=== PATIENT | male | born 1985 | race Caucasian/White ===

== ENCOUNTER 2016-11-21 08:59 | Observation (INO) ==
--- NOTE | 2016-11-21 09:03 | Emergency Department Note ---
Disposition Clinical Impression: Abscess of skin or subcutaneous tissue Qualifiers: Site of cutaneous abscess: extremity Site of cutaneous abscess of extremity: upper extremity Laterality: left Qualified Code(s): L02.414 - Cutaneous abscess of left upper limb Cellulitis Qualifiers: Site of cellulitis: extremity Site of cellulitis of extremity: upper extremity Laterality: left Qualified Code(s): L03.114 - Cellulitis of left upper limb Disposition: Admitted As Inpatient Condition: Fair Skin/Abscess/FB HPI Chief complaint: ED Wound/Laceration Stated complaint: abcess to left forarm Time Seen by Provider: 11/21/16 09:04 Source: patient Mode of arrival: private vehicle Limitations: no limitations Nursing Notes Reviewed: Yes Vital Signs Reviewed: Yes HPI Narrative: The patient relates he thinks he either sustained an abrasion, puncture or insect bite working in his garage couple days ago. He stopped increased redness and swelling over the left forearm that became more prominent yesterday and also had drained "a lot" of purulent debris. He has had increased pain, swelling and erythema overnight prompting him to come to the emergency Department this a.m. He has had a feeling of fevers and chills with a temperature at home documented at 99.7. He has noted some of the redness has extended up the medial aspect of his upper arm and he has pain only up to the axilla. He denies chest pains, palpitations, diaphoresis, shortness of breath or presyncopal complaints. He denies nausea or vomiting. He denies any other area of redness or swelling. He has had swelling extend to his hand and he has pain across the entire dorsal left forearm with flexion and extension of the fingers or wrist. He also has pain with flexion and extension of the elbow as well as supination or pronation. He reports some generalized malaise and myalgia. Pt Subjective Complaint: abscess/boil Onset (ago): day(s) () Tetanus Up to Date: yes (2008) Location: LUE Severity: moderate, severe Quality: aching, dull, constant Consistency: constant Improves with: none Worsens with: palpation, movement Context: other (States he got a bite or an abrasion to the arm working in his garage.) Associated symptoms: Reports: fever, chills, malaise. Denies: rigors, itching, nausea, vomiting, arthralgias, myalgias, cough, shortness of breath Treatments prior to arrival: attempted to drain pus at home Home Medications Medication Instructions Recorded Confirmed No Known Home Drugs 11/21/16 11/21/16 Allergies Allergy/AdvReac Type Severity Reaction Status Date / Time No Known Allergies Allergy Verified 11/21/16 09:00 All systems ED: reviewed and negative except as stated. Past Medical History - Past Medical History Attestation: Yes The following information was validated with the patient. Source: patient, old records reviewed, nursing notes reviewed Medical history: Reports: no medical history Surgical history: Reports: no surgical history Psychiatric history: Reports: no psych history - Social History Smoking Status: Current every day smoker Alcohol use: Reports: none Drug use: Reports: none Physical Exam - General Limitations: no limitations General appearance: alert, anxious, in distress - Head Head exam: atraumatic, normocephalic, normal inspection - Eye Eye exam: Present: normal appearance, PERRL, EOMI - Neck Neck exam: Present: normal inspection, full ROM, trachea midline - Chest Chest inspection: Present: normal inspection, symmetric chest wall rise - Respiratory Respiratory exam: Present: normal lung sounds bilaterally. Absent: respiratory distress, wheezes, prolonged expiratory phase - Cardiovascular Cardiovascular exam: Present: regular rate, normal rhythm, normal heart sounds. Absent: systolic murmur, rubs - Expanded Upper Extremity Exam Shoulder exam: Present: normal inspection, full ROM. Absent: tenderness, swelling Arm exam: Present: full ROM, erythema (Streaking erythema/lymphangitis to the left axilla. Patient is tender without lymphadenopathy in the left axilla.). Absent: tenderness, swelling Elbow exam: Present: normal inspection, swelling, erythema (Ulnar side of the left elbow extending to the medial upper arm.), pain w/ pronation/supination. Absent: full ROM, tenderness Forearm/Wrist exam: Present: tenderness, swelling, erythema, other (Left forearm has prominent dorsal and radial swelling with erythema and edema extending distally to the fingers. Patient has a subcentimeter erosion where it appears he has already drained an underlying abscess. There is induration but no fluctuance or crepitance about the left forearm.) Hand exam: Present: other (Left hand is swollen, erythematous and tender.) Vascular exam: Normal: capillary refill, radial pulse - Expanded Lower Extremity Exam Neurovascular/Tendon exam: Present: normal capillary refill. Absent: motor deficit, sensory deficit, tendon deficit Gait: observed and normal - Neurological Exam Neurological exam: Present: alert, oriented X3 - Psychiatric Psychiatric exam: Present: normal affect, normal mood, anxious - Skin Skin exam: Present: warm, dry, intact, normal color. Absent: diaphoresis, pallor Course Course Narrative: 0910: Given the patient's prominent cellulitis and draining abscess, IV is established and he is written to receive Dilaudid and Zofran for pain and an initial dose of vancomycin. He thinks his last tetanus shot was 8 years ago and this will be updated as well. Lab work including blood cultures and lactic acid has been ordered not consulted with radiology regarding imaging. They recommended a contrasted CT of the left forearm to best define the anatomy. There is currently no fluctuant point of abscess to indicate clinically a point for any drainage procedure. The patient understands that he will need continuation of IV antibiotics and pain medicine. If there is an area of abscess development or air in the tissue he will need transfer. 1030: After reviewing CT imaging on the CT scanner, I spoken with Dr. Cantu who is agreeable with admission of the patient at this facility for continuation of IV antibiotics. I discussed testing results and recommended disposition with the patient is agreeable for inpatient observation for continuation of antibiotics and pain medications. He understands this may take a day or 2 to reach a point where he will be appropriate for outpatient treatment with oral medications. Vital Signs Temperature 98.4 F 11/21/16 09:00 Pulse Rate 124 11/21/16 09:00 Respiratory Rate 21 11/21/16 09:00 Blood Pressure 143/84 11/21/16 09:00 O2 Sat by Pulse Oximetry 98 11/21/16 09:00 Temperature 98.4 F 11/21/16 09:00 Pulse Rate 99 11/21/16 10:02 Respiratory Rate 18 11/21/16 10:02 Blood Pressure 148/84 11/21/16 10:02 O2 Sat by Pulse Oximetry 99 11/21/16 10:02 Oxygen Delivery Oxygen Delivery Room Air Skin/Abscess/Foreign Body - Differential Diagnosis Likely: abscess of skin or subcutaneous tissue, cellulitis - Medical Records Medical records reviewed: Yes I reviewed the patient's medical records. - Lab Data Lab results reviewed: Yes I reviewed the patient's lab results. Result diagrams: 11/21/16 09:15 11/21/16 09:15 Lab Results 11/21/16 11/21/16 11/21/16 Range/Units 09:15 09:15 09:15 WBC 27.2 H (4.3-11.1) K/mcL RBC 4.64 (4.19-5.50) M/mcL Hgb 13.9 (12.9-16.9) g/dL Hct 39.9 (37.5-50.1) % MCV 86.0 (83.0-100.0) fL MCH 30.0 (28.0-33.3) pg MCHC 34.8 (31.6-35.5) g/dL RDW 13.2 (11.5-14.5) % Plt Count 367 (140-400) K/mcL MPV 9.3 L (9.4-12.4) fL Immature Gran % 0.8 (0-4) % Seg Neutrophils % 83.0 % Lymphocytes % 7.8 % Monocytes % 7.1 % Eosinophils % 1.0 % Basophils % 0.3 % Neutrophils # 22.6 H (1.6-8.9) K/mcL Lymphocytes # 2.1 (0.6-4.6) K/mcL Monocytes # 1.9 H (0.0-1.3) K/mcL Eosinophils # 0.3 (0.0-0.6) K/mcL Basophils # 0.1 (0.0-0.2) K/mcL Platelet Estimate Normal (Normal) PT 14.8 H (9.4-12.1) Seconds INR 1.4 APTT 28.8 (26.0-36.0) Seconds Sodium 135 L (136-145) mEq/L Potassium 3.7 (3.5-4.5) mEq/L Chloride 102 (98-109) mEq/L Carbon Dioxide 21 (19-29) mEq/L BUN 9 (8-26) mg/dL Creatinine 0.72 (0.72-1.25) mg/dL Est GFR ( Amer) > 60 (> 60) Est GFR (Non-Af Amer) > 60 (> 60) BUN/Creatinine Ratio 13 (6-26) Glucose 135 H (70-99) mg/dL Calculated Osmolality 281 (280-300) Lactic Acid (0.5-2.2) mmol/L Calcium 9.6 (8.6-10.8) mg/dL Total Bilirubin 0.7 (0.2-1.2) mg/dL Direct Bilirubin 0.3 (0.0-0.5) mg/dL Indirect Bilirubin 0.4 (0.0-1.2) mg/dL AST 13 (5-34) Units/L ALT 11 (0-55) Units/L Alkaline Phosphatase 104 (38-126) Units/L Serum Total Protein 7.7 (6.0-8.3) g/dL Albumin 3.7 (3.5-5.0) g/dL Globulin 4.0 H (2.4-3.5) g/dL Albumin/Globulin Ratio 0.9 L (1.1-2.2) 11/21/16 Range/Units 09:15 WBC (4.3-11.1) K/mcL RBC (4.19-5.50) M/mcL Hgb (12.9-16.9) g/dL Hct (37.5-50.1) % MCV (83.0-100.0) fL MCH (28.0-33.3) pg MCHC (31.6-35.5) g/dL RDW (11.5-14.5) % Plt Count (140-400) K/mcL MPV (9.4-12.4) fL Immature Gran % (0-4) % Seg Neutrophils % % Lymphocytes % % Monocytes % % Eosinophils % % Basophils % % Neutrophils # (1.6-8.9) K/mcL Lymphocytes # (0.6-4.6) K/mcL Monocytes # (0.0-1.3) K/mcL Eosinophils # (0.0-0.6) K/mcL Basophils # (0.0-0.2) K/mcL Platelet Estimate (Normal) PT (9.4-12.1) Seconds INR APTT (26.0-36.0) Seconds Sodium (136-145) mEq/L Potassium (3.5-4.5) mEq/L Chloride (98-109) mEq/L Carbon Dioxide (19-29) mEq/L BUN (8-26) mg/dL Creatinine (0.72-1.25) mg/dL Est GFR ( Amer) (> 60) Est GFR (Non-Af Amer) (> 60) BUN/Creatinine Ratio (6-26) Glucose (70-99) mg/dL Calculated Osmolality (280-300) Lactic Acid 1.1 (0.5-2.2) mmol/L Calcium (8.6-10.8) mg/dL Total Bilirubin (0.2-1.2) mg/dL Direct Bilirubin (0.0-0.5) mg/dL Indirect Bilirubin (0.0-1.2) mg/dL AST (5-34) Units/L ALT (0-55) Units/L Alkaline Phosphatase (38-126) Units/L Serum Total Protein (6.0-8.3) g/dL Albumin (3.5-5.0) g/dL Globulin (2.4-3.5) g/dL Albumin/Globulin Ratio (1.1-2.2) - Radiology Data Radiology results reviewed: Yes I reviewed the patient's radiology results. CT has been performed of the left forearm with IV contrast. This shows edema without evidence for free air or abscess. There is a underlying bony abnormalities. There is no osteomyelitis. This is on my interpretation. At this time there is no communication in the PACS system with radiology and radiology read will be significantly delayed. Impressions Forearm CT 11/21/16 09:13 IMPRESSION: Elongated focal fluid within the dorsal distal forearm and wrist along radial aspect which appears to be only partially encapsulated by thin enhancing rim but is concerning for developing abscess measuring approximately 7.8 x 1.7 x 0.9 cm. Associated likely cellulitis. There also appears to be some blistering of the dermis to the distal forearm dorsally. No acute bony abnormalities. No CT evidence for osteomyelitis. D/ 11/21/2016 11:08:45 Kenny Lynch MD / Gloria Mcdonough Interpreting Provider: Kenny Lynch MD
[2016-11-21] MEDS ORDERED: Ondansetron 4 MG/2 ML VIAL IVP ONE (09:10)
[2016-11-21] MEDS ORDERED: 0.9 % Sodium Chloride 1,000 ML IVC ONE (09:10)
[2016-11-21] MEDS ORDERED: *HR* HYDROmorphone (PF) 1 MG/ML SYRINGE IVP ONE (09:10)
[2016-11-21] MEDS ORDERED: Vancomycin 1,000 MG in D5% in Water 250 ML IVPB ONE (09:10)
[2016-11-21] MEDS ORDERED: 0.9 % Sodium Chloride 1,000 ML IVC SCH ×2 (09:15→11:25)
[2016-11-21 09:36] LABS: Basophils # 0.1 K/mcL (0.0-0.2); Basophils % 0.3 %; Eosinophils # 0.3 K/mcL (0.0-0.6); Hematocrit 39.9 % (37.5-50.1); Hemoglobin 13.9 g/dL (12.9-16.9); Immature Granulocytes % 0.8 % (0-4); Lymphocytes # 2.1 K/mcL (0.6-4.6); Lymphocytes % 7.8 %; Mean Corpuscular HGB Conc 34.8 g/dL (31.6-35.5); Mean Platelet Volume 9.3 fL (9.4-12.4); Monocytes # 1.9 K/mcL (0.0-1.3); Monocytes % 7.1 %; Neutrophils # 22.6 K/mcL (1.6-8.9); Platelet Count 367 K/mcL (140-400); Red Blood Count 4.64 M/mcL (4.19-5.50); Red Cell Distribution Width 13.2 % (11.5-14.5)
[2016-11-21 09:39] LABS: INR 1.4; Prothrombin Time 14.8 Seconds (9.4-12.1)
[2016-11-21 09:42] LABS: Activated Partial Thrombo Time 28.8 Seconds (26.0-36.0)
[2016-11-21] MEDS ORDERED: Tdap (Boostrix) Vaccine 0.5 ML SYRINGE IM ONE (09:42)
[2016-11-21 09:53] LABS: Alanine Aminotransferase 11 Units/L (0-55); Albumin 3.7 g/dL (3.5-5.0); Albumin/Globulin Ratio 0.9 (1.1-2.2); Alkaline Phosphatase 104 Units/L (38-126); Aspartate Amino Transferase 13 Units/L (5-34); BUN/Creatinine Ratio 13 (6-26); Bilirubin,Direct 0.3 mg/dL (0.0-0.5); Bilirubin,Indirect 0.4 mg/dL (0.0-1.2); Bilirubin,Total 0.7 mg/dL (0.2-1.2); Blood Urea Nitrogen 9 mg/dL (8-26); Calcium 9.6 mg/dL (8.6-10.8); Carbon Dioxide 21 mEq/L (19-29); Chloride 102 mEq/L (98-109); Glucose 135 mg/dL (70-99); Osmolality,Calculated 281 (280-300); Potassium 3.7 mEq/L (3.5-4.5); Sodium 135 mEq/L (136-145); Total Protein 7.7 g/dL (6.0-8.3); eGFR For African Americans > 60 (> 60); eGFR For Non-African Americans > 60 (> 60)
[2016-11-21 10:14] LABS: Platelet Estimate Normal (Normal)
[2016-11-21] MEDS ORDERED: Aminoglycoside Consult 1 EACH MC ONE (10:39)
[2016-11-21] MEDS ORDERED: *HR* HYDROmorphone (PF) 1 MG/ML SYRINGE IVP PRN ×2 (11:25→12:15)
[2016-11-21] MEDS ORDERED: *HR* OxyCODONE Immed Rel 5 MG TABLET PO PRN (11:25)
[2016-11-21] MEDS ORDERED: Ketorolac 30 MG/ML VIAL IVP PRN (11:25)
[2016-11-21] MEDS ORDERED: MOM Conc 10 ML UD.LIQ PO PRN (11:25)
[2016-11-21] MEDS ORDERED: Naloxone 0.4 MG/ML INJ IVP PRN (11:25)
[2016-11-21] MEDS ORDERED: Ondansetron 4 MG/2 ML VIAL IVP PRN (11:25)
[2016-11-21 11:51] VITALS: BP 152/79
[2016-11-21] MEDS ORDERED: *HR* HYDROmorphone 2 MG/ML SYRINGE IVP PRN (11:54)
[2016-11-21] MEDS ORDERED: *HR* HYDROcodone/Acet 5/325 mg TABLET PO SCH (12:00)
--- NOTE | 2016-11-21 14:50 | Internal Med History&Physical ---
Date of Encounter: 11/21/16 Time of Encounter: 14:20 Assessment and Plan (1) Abscess of skin or subcutaneous tissue Current visit: Yes Status: Acute He has been started on IV vancomycin. I have spoken with the surgeon component engineer at [facility] and the patient will be transferred for drainage of the forearm abscess. Qualifiers: Site of cutaneous abscess: extremity Site of cutaneous abscess of extremity : upper extremity Laterality: left Qualified Code(s): L02.414 - Cutaneous abscess of left upper limb Internal Medicine - H&P: HPI Chief complaint: Left arm infection Admitted From: Home Plans for Post Hospital Care: Transfer Other History of present illness: Mr. Traylor is a 31 year old male who came to emergency room stating he felt something bit him 2 days earlier working in the garage. He did not see the insect or other source of the bite. The following day he noticed some increased erythema and pain in his left forearm. It worsened over the next 24 hours and he came to [facility] emergency room the morning of November 21. He was found to have significant erythema and pain with lymphangitic streaking. A CT was done but the PACS system was not operational at the time and the patient was admitted to [facility] floor on IV vancomycin. The CT scan report has now arrived and shows a 7.8 x 1.7 x 0.9 cm abscess with associated cellulitis. Past Med Surg Social Fam HX - Past Medical History Medical history: no medical history Psychiatric history: no psych history - Past Surgical History Surgical History: no surgical history - Social History Smoking Status: Current every day smoker Smokeless Tobacco Status: No Alcohol use: none Drug use: none Internal Medicine - H&P: Meds No Known Home Drugs 11/21/16 [History] 3 Allergy/AdvReac Type Severity Reaction Status Date / Time No Known Allergies Allergy Verified 11/21/16 09:00 All Systems PM: A 10-system review of systems was performed and is negative for pertinent findings except as documented above in the HPI. Review of systems: Gen.: He states his weight has been stable past few months Cardiovascular: He denies hypertension NC heart failure angina DVT or pulmonary embolus Respiratory: He has smoked since age 17 up to 2 per day. He denies chronic lung disease GI: He denies disorders of his liver gallbladder or exocrine pancreas : He denies hematuria dysuria or kidney stones Neurologic: He denies large distribution strokes or seizures Endocrine: He denies diabetes or thyroid disease or hyperlipidemia Hematology/oncology: Denies blood disorders cancers or anemia Psychiatric: He denies anxiety depression or other mental health issues Musk skeletal: He denies arthritis gout or other bone joint or muscle disorders. - Constitutional Vitals: Temp Pulse Resp BP Pulse Ox 98.7 F 107 16 152/79 100 11/21/16 11:51 11/21/16 11:51 11/21/16 11:51 11/21/16 11:51 11/21/16 11:51 Exam: Gen.: He is a well-developed well-nourished male who appears in mild to moderate pain HEENT: Head is atraumatic and normocephalic. Eyes: EOMI. There is no scleral icterus. Mouth: Mucosa is moist. Neck: Supple and nontender. There is no thyromegaly or adenopathy noted. Heart: Regular without murmurs gallops or ectopics Lungs: No wheezes or crackles heard. Abdomen: Soft and nontender. There is no thyromegaly or adenopathy noted. Heart: Regular without murmurs gallops or ectopics Lungs: No wheezes or crackles are heard. Abdomen: Soft and nontender. No masses or guarding are noted. Extremities: There is no cyanosis edema or clubbing noted. Dorsalis pedis and posterior tibial pulses are trace to 1+ palpable bilaterally. The left arm shows significant erythema involving the entire forearm and hand with edema. There is lymphangitic streaking on the inner forearm extending to the axillary area. There is an area of induration measuring approximately 8 cm x 4 cm with 2 areas of visible purulence on the extensor forearm distally. Neurologic: Mental status: He is talkative and a good historian. Cranial nerves : Smile is symmetric. Forehead wrinkles bilaterally. Tongue protrudes midline. EOMI. Motor: There is no pronator drift. Cerebellar: Finger to nose is intact bilaterally. Skin: Warm and dry with left arm changes as per above. Internal Med - H&P Results - Labs CBC & Chem 7: 11/21/16 09:15 11/21/16 09:15
--- NOTE | 2016-11-21 14:58 | Discharge Summary ---
Date of Encounter: 11/21/16 Time of Encounter: 14:20 - Discharge Diagnosis (1) Abscess of skin or subcutaneous tissue Priority: Primary Status: Acute Qualifiers: Site of cutaneous abscess: extremity Site of cutaneous abscess of extremity : upper extremity Laterality: left Qualified Code(s): L02.414 - Cutaneous abscess of left upper limb - Discharge Medications Home Medications: No Known Home Drugs 11/21/16 [History] Allergies/Adverse Reactions: 3 Allergy/AdvReac Type Severity Reaction Status Date / Time No Known Allergies Allergy Verified 11/21/16 09:00 Date of admission: 11/21/16 10:59 Primary care physician: PCP NONE - Patient Status Disposition: Transfer Other Condition: Fair - Discharge Instructions Hospital course: Mr. Traylor is a 31 year old male who came to emergency room stating he felt something bit him 2 days earlier working in the garage. He did not see the insect or other source of the bite. The following day he noticed some increased erythema and pain in his left forearm. It worsened over the next 24 hours and he came to [facility] emergency room the morning of November 21. He was found to have significant erythema and pain with lymphangitic streaking. A CT was done but the PACS system was not operational at the time and the patient was admitted to [facility] floor on IV vancomycin. The CT scan report has now arrived and shows a 7.8 x 1.7 x 0.9 cm abscess with associated cellulitis. Initial orders were written by the emergency room physician. I saw him the afternoon of November 21. I spoke with the general surgeon food operations manager at [facility] and he wished the patient to be transferred to emergency room at [facility] for further urgent intervention. - Time Spent with Patient Total time spent providing and/or coordinating discharge services: - Constitutional Vitals: Temp Pulse Resp BP Pulse Ox 98.7 F 107 16 152/79 100 11/21/16 11:51 11/21/16 11:51 11/21/16 11:51 11/21/16 11:51 11/21/16 11:51
[2016-11-21] MEDS ORDERED: Ringers Solution, Lactated 1,000 ML IVC SCH (15:00)
[2016-11-21] MEDS ORDERED: Vancomycin 1,000 MG in D5% in Water 250 ML IVPB SCH ×2 (18:00→22:00)
== END 2016-11-21 16:03 | disposition other institution (70) ==
LOC: EMEROOPIK 08:59 → INPPIK 08:59
PROVIDERS: ADMIT Internal Medicine; ATTEND Internal Medicine

== ENCOUNTER 2018-07-20 02:57 | Inpatient (IN) ==
[2018-07-20] MEDS ORDERED: Isovue-370 500 ML BOTTLE IVP ONE (03:24)
[2018-07-20] MEDS ORDERED: Ketorolac 30 MG/ML VIAL IVP ONE (03:25)
--- NOTE | 2018-07-20 03:31 | Emergency Department Note ---
Disposition Clinical Impression: Cellulitis Qualifiers: Site of cellulitis: extremity Site of cellulitis of extremity: upper extremity Laterality: right Qualified Code(s): L03.113 - Cellulitis of right upper limb Disposition: Admitted As Inpatient Condition: Fair Referrals: NONE,PCP [Primary Care Provider] - Forms: ED Satisfaction Letter Time of Disposition: 05:06 Extremity Problem HPI - General Chief complaint: ED Extremity Problem,Nontraumatic Stated complaint: SWELLING TO RIGHT ARM Time Seen by Provider: 07/20/18 03:07 Source: patient Mode of arrival: private vehicle Limitations: no limitations Nursing Notes Reviewed: Yes Vital Signs Reviewed: Yes - History of Present Illness HPI Narrative: Patient presents to the ED with redness, pain and swelling to his right arm that started yesterday. He has an open sore just below the elbow that he states first appeared 2 days ago. He is unsure what caused the initial sore. He denies any specific injury that he can recall. He states he picked the scab off yesterday and there was some spontaneous drainage. Following that he develops progressively worsening redness and swelling up and down the entire right arm. He rates his pain 8 out of 10. He reports fever of 100.9 at home just prior to coming to the ED as well as chills. He took 400 mg of ibuprofen 12 hours ago. He is also complaining of a headache. He has a history of multiple prior abscesses and has been hospitalized for a severe abscess with MRSA in the past requiring surgical drainage in his left arm. He states he has had other abscesses as well that he opened and drained at home. No other hospitalizations for abscesses. He denies any chronic medical problems. He does not take any routine medications. He smokes a pack per day. He occasionally drinks alcohol and smokes marijuana. He admits to a history of IV drug abuse over 10 years ago but denies any current use. Pain Scale: 8 - Related Data Previous Rx's Medication Instructions Recorded Oxycodone HCl/Acetaminophen 1 each PO BID #10 tablet 11/25/16 [Percocet 5-325 mg Tablet] Sulfamethoxazole/Trimeth DS 1 each PO BID #14 tablet 11/25/16 [Bactrim DS] Allergies Allergy/AdvReac Type Severity Reaction Status Date / Time No Known Allergies Allergy Verified 11/21/16 09:00 Constitutional: Reports: fever, chills. Denies: weakness, weight change Cardiovascular: Denies: chest pain, palpitations, dyspnea on exertion, edema, syncope Respiratory: Reports: cough. Denies: dyspnea, wheezes, hemoptysis, stridor Gastrointestinal: Denies: abdominal pain, nausea, vomiting, diarrhea, constipation, hematemesis, melena, hematochezia Musculoskeletal: Reports: arthralgia (R arm) Integumentary: Reports: as per HPI (redness, swelling, warmth R arm). Denies: rash, abrasion, lesions Neurological: Denies: headache, weakness, numbness, paresthesias, confusion, abnormal gait, vertigo Psychiatric: Denies: anxiety, depression, suicidal thoughts, homicidal thoughts, auditory hallucinations, visual hallucinations Endocrine: Denies: fatigue Hematological/Lymphatic: Denies: easy bleeding, easy bruising Allergic/Immunologic: Denies: facial swelling, urticaria Past Medical History - Past Medical History Medical history: Reports: no medical history Surgical history: Reports: no surgical history Psychiatric history: Reports: no psych history - Social History Smoking Status: Current every day smoker Smokeless Tobacco Status: No Alcohol use: Reports: none Drug use: Reports: none Physical Exam - General Limitations: no limitations General appearance: alert, in no apparent distress - Head Head exam: atraumatic, normocephalic, normal inspection - Eye Eye exam: Present: normal appearance, PERRL, EOMI - Chest Chest inspection: Present: normal inspection, symmetric chest wall rise - Respiratory Respiratory exam: Present: normal lung sounds bilaterally - Cardiovascular Cardiovascular exam: Present: regular rate, normal rhythm, normal heart sounds - Expanded Upper Extremity Exam Arm exam: Present: swelling (Overnight), erythema (On right, streaking up to axilla) Elbow exam: Present: full ROM (but pain with movement), swelling (On right) Forearm/Wrist exam: Present: full ROM (but pain in forearm with movement), tenderness (Throughout the forearm on right), swelling (Of entire right arm starting at wrist and extending up to the upper arm), erythema (Entire forearm on right), other (11 cm scabbed sore on the back of right arm below elbow) Hand exam: Present: normal inspection, full ROM Neuromotor exam: Normal: wrist extension, thumb opposition, thumb IP flexion, thumb adduction, fingers 2-5 abduction Neurosensory exam: Normal: radial nerve Vascular exam: Normal: capillary refill, radial pulse - Neurological Exam Neurological exam: Present: alert, oriented X3 - Psychiatric Psychiatric exam: Present: normal affect, normal mood - Skin Skin exam: Present: warm, dry, intact, normal color Course Course Narrative: Patient presents to the ED with pain, redness and swelling of his entire right arm that developed after he picked the scab off a sore just below his right elbow. The entire arm is red, hot, swollen and tense with no focal area of fluctuance palpable with streaking redness up into the axilla concerning for extensive cellulitis as well as the possibility of a deep abscess. He is tachycardic and has a low-grade fever of 100.7. Given his history of MRSA will start IV vancomycin after blood cultures are drawn. Will obtain CT scan for further evaluation of any possible abscess. - Reevaluation(s) Reevaluation #1: Lab work shows a leukocytosis of 22,000 with neutrophils of 18,000. Lactic acid is not elevated. Awaiting CT results. Time: 04:33 Reevaluation #2: CT scan shows skin thickening and soft tissue swelling but no focal fluid collection or gas. Discussed with patient the need for admission and continued IV antibiotics but without the need for anticipated surgical intervention and he is in agreement. I spoken to the hospitalist on-call, Dr. Cantu, who has agreed to accept the patient. Time: 05:04 Vital Signs Temperature 100.7 F H 07/20/18 02:58 Pulse Rate 128 07/20/18 02:58 Respiratory Rate 20 07/20/18 02:58 Blood Pressure 123/72 07/20/18 02:58 O2 Sat by Pulse Oximetry 97 07/20/18 02:58 Temperature 98.8 F 07/20/18 04:56 Pulse Rate 128 07/20/18 02:58 Respiratory Rate 20 07/20/18 02:58 Blood Pressure 123/72 07/20/18 02:58 O2 Sat by Pulse Oximetry 97 07/20/18 02:58 Oxygen Delivery Oxygen Delivery Room Air Extremity Problem, Nontraumati - Differential Diagnosis Likely: cellulitis, other (abscess) - Medical Records Medical records reviewed: Yes I reviewed the patient's medical records. - Lab Data Lab results reviewed: Yes I reviewed the patient's lab results. Result diagrams: 07/20/18 04:05 07/20/18 03:35 Lab Results 07/20/18 07/20/18 07/20/18 Range/Units 03:35 04:05 04:05 WBC 22.5 H (4.3-11.1) K/mcL RBC 4.20 (4.19-5.50) M/mcL Hgb 12.7 L (12.9-16.9) g/dL Hct 36.2 L (37.5-50.1) % MCV 86.2 (83.0-100.0) fL MCH 30.2 (28.0-33.3) pg MCHC 35.1 (31.6-35.5) g/dL RDW 12.7 (11.5-14.5) % Plt Count 301 (140-400) K/mcL MPV 9.8 (9.4-12.4) fL Immature Gran % 0.5 (0-4) % Seg Neutrophils % 82.2 % Lymphocytes % 8.4 % Monocytes % 7.8 % Eosinophils % 0.7 % Basophils % 0.4 % Neutrophils # 18.5 H (1.6-8.9) K/mcL Lymphocytes # 1.9 (0.6-4.6) K/mcL Monocytes # 1.8 H (0.0-1.3) K/mcL Eosinophils # 0.2 (0.0-0.6) K/mcL Basophils # 0.1 (0.0-0.2) K/mcL Sodium 133 L (136-145) mEq/L Potassium 3.3 L (3.5-5.1) mEq/L Chloride 99 (98-107) mEq/L Carbon Dioxide 26 (23-29) mEq/L BUN 11 (6-20) mg/dL Creatinine 0.67 L (0.70-1.30) mg/dL Est GFR ( Amer) > 60 (> 60) Est GFR (Non-Af Amer) > 60 (> 60) BUN/Creatinine Ratio 16 (6-26) Glucose 133 H (70-105) mg/dL Calculated Osmolality 277 L (280-300) Lactic Acid 0.4 L (0.5-2.2) mmol/L Calcium 8.9 (8.6-10.3) mg/dL - Radiology Data Radiology results reviewed: Yes I reviewed the patient's radiology results. ITS Impressions Forearm CT 07/20/18 03:24 IMPRESSION: Skin thickening and diffuse soft tissue edema. No fluid collection or soft tissue gas. D/ / Rosaura Balderas MD / Rosaura Balderas MD Interpreting Provider: Rosaura Balderas MD
[2018-07-20] MEDS ORDERED: Acetaminophen 325 MG TABLET PO ONE (03:48)
[2018-07-20 04:10] LABS: BUN/Creatinine Ratio 16 (6-26); Blood Urea Nitrogen 11 mg/dL (6-20); Calcium 8.9 mg/dL (8.6-10.3); Carbon Dioxide 26 mEq/L (23-29); Chloride 99 mEq/L (98-107); Glucose 133 mg/dL (70-105); Osmolality,Calculated 277 (280-300); Potassium 3.3 mEq/L (3.5-5.1); Sodium 133 mEq/L (136-145); eGFR For African Americans > 60 (> 60); eGFR For Non-African Americans > 60 (> 60)
[2018-07-20 04:13] LABS: Basophils # 0.1 K/mcL (0.0-0.2); Basophils % 0.4 %; Eosinophils # 0.2 K/mcL (0.0-0.6); Eosinophils % 0.7 %; Hematocrit 36.2 % (37.5-50.1); Hemoglobin 12.7 g/dL (12.9-16.9); Immature Granulocytes % 0.5 % (0-4); Lymphocytes # 1.9 K/mcL (0.6-4.6); Lymphocytes % 8.4 %; Mean Corpuscular HGB Conc 35.1 g/dL (31.6-35.5); Mean Corpuscular Hemoglobin 30.2 pg (28.0-33.3); Mean Corpuscular Volume 86.2 fL (83.0-100.0); Mean Platelet Volume 9.8 fL (9.4-12.4); Monocytes # 1.8 K/mcL (0.0-1.3); Monocytes % 7.8 %; Neutrophils # 18.5 K/mcL (1.6-8.9); Platelet Count 301 K/mcL (140-400); Red Cell Distribution Width 12.7 % (11.5-14.5); Segmented Neutrophils % 82.2 %; White Blood Count 22.5 K/mcL (4.3-11.1)
[2018-07-20] MEDS ORDERED: traMADol 50 MG TABLET PO PRN (05:07)
[2018-07-20] MEDS ORDERED: Naloxone 0.4 MG/ML INJ IVP PRN ×2 (05:07→05:17)
[2018-07-20] MEDS ORDERED: Acetaminophen 325 MG TABLET PO PRN ×2 (05:07→05:17)
[2018-07-20] MEDS ORDERED: *HR* OxyCODONE Immed Rel 5 MG TABLET PO PRN (05:07)
[2018-07-20] MEDS: traMADol 50 MG TABLET PO PRN (13:05)
--- NOTE | 2018-07-20 15:01 | Internal Med History&Physical ---
Date of Encounter: 07/20/18 Time of Encounter: 14:30 Assessment and Plan (1) Cellulitis Current visit: Yes Status: Acute He has been started on IV vancomycin. Lactobacillus will be added. Qualifiers: Site of cellulitis: extremity Site of cellulitis of extremity: upper extremity Laterality: right Qualified Code(s): L03.113 - Cellulitis of right upper limb (2) Hypokalemia Current visit: Yes Status: Acute He reports 2 episodes of vomiting in the 24 hours preceding hospitalization. Supplemental potassium with IV fluids will be given and follow-up labs monitored. (3) Anemia Current visit: Yes Status: Acute Anemia testing will be done in a.m. Qualifiers: Anemia type: unspecified type Qualified Code(s): D64.9 - Anemia, unspecified Internal Medicine - H&P: HPI Chief complaint: Right arm infection Admitted From: Emergency Dept Plans for Post Hospital Care: Home History of present illness: Mr. Traylor is a 32 year old male who came to emergency room stating he had right arm infection onset 07/17/2018. He reports he first noticed a "little spot" on his arm that was pruritic. He admits he likely scratched it. Over the next 2 days the spot develop expanding erythema and pain. He felt fevers and chills the evening of July 19 so came to emergency room. He was evaluated and was found to have significant cellulitis and was admitted to [facility] floor for ongoing care needs. He denies knowledge of specific injury such as bite, laceration, or other trauma. He had an abscess of the left forearm October 2016 requiring surgical debridement at [facility]. He reports he has had 4-5 "sores" annually on his skin, primarily arms, for several years. He denies other family members similarly affected. Past Med Surg Social Fam HX - Past Medical History Medical history: no medical history Psychiatric history: no psych history - Past Surgical History Surgical History: orthopedic, other Additional surgical history: LEFT WRIST - Social History Smoking Status: Current every day smoker Packs per day: 1 Smokeless Tobacco Status: No Alcohol use: none Drug use: none - Family History Mother History Unknown: Yes Internal Medicine - H&P: Meds Allergy/AdvReac Type Severity Reaction Status Date / Time No Known Allergies Allergy Verified 11/21/16 09:00 All Systems PM: A 10-system review of systems was performed and is negative for pertinent findings except as documented above in the HPI. Review of systems: Review of systems from his October [address] [facility] hospitalization were reviewed and revised as below. Gen.: His weight has been stable at approximately 65 kg since October 2016 hospitalization. Cardiovascular: He denies hypertension MA heart failure angina DVT or pulmonary embolus Respiratory: He has smoked since age 17 up to 2 packs per day. He denies chronic lung disease GI: He denies disorders of his liver gallbladder or exocrine pancreas : He denies hematuria dysuria or kidney stones Neurologic: He denies large distribution strokes or seizures Endocrine: He denies diabetes or thyroid disease or hyperlipidemia Hematology/oncology: Denies blood disorders or personal cancer. Reports family history of cancer. He was unaware he had anemia on labs since 11/21/2016. Psychiatric: He denies anxiety depression or other mental health issues Musk skeletal: He denies arthritis gout or other bone joint or muscle disorders. He had left forearm abscess requiring debridement October 2016 as per history of present illness. - Constitutional Vitals: Temp Pulse Resp BP Pulse Ox 97.8 F 81 16 98/63 98 07/20/18 10:31 07/20/18 10:31 07/20/18 10:31 07/20/18 10:31 07/20/18 10:31 Exam: Gen.: He is a well-developed well-nourished male who appears in mild to moderate discomfort from left arm pain HEENT: Head is atraumatic and normocephalic. Eyes: EOMI. There is no scleral icterus. Mouth: Mucosa is moist. Neck: Supple and nontender. There is no thyromegaly or adenopathy noted. Heart: Regular without murmurs gallops or ectopics Lungs: No wheezes or crackles are heard. Abdomen: Soft and nontender. No masses or guarding are noted. Extremities: The right arm shows erythema from the distal upper arm to the hand. There is a shallow eschar approximately 15 mm diameter near the right elbow on the flexor surface of the forearm. There is induration of the surrounding tissues extending several centimeters on the flexor surface distally of the right forearm. There is an erythematous streak noted on the right upper arm extending to the shoulder. Adenopathy is not palpated in the axilla but he does complain of tenderness on palpation. The left arm is unremarkable. There is no edema of the legs. Dorsalis pedis and posterior tibial pulses are 2 over 2 bilaterally. Neurologic: Mental status: He is talkative and a good historian. Cranial nerves: Smile is symmetric. Forehead wrinkles bilaterally. Tongue protrudes midline. EOMI. Motor: Grossly intact without further formal testing done Skin: He has changes of right arm cellulitis as per above. Otherwise skin is warm and dry. Internal Med - H&P Results - Labs CBC & Chem 7: 07/20/18 04:05 07/20/18 03:35 Labs: Short CBC 07/20/18 Range/Units 04:05 WBC 22.5 H (4.3-11.1) K/mcL Hgb 12.7 L (12.9-16.9) g/dL Hct 36.2 L (37.5-50.1) % Plt Count 301 (140-400) K/mcL Neutrophils # 18.5 H (1.6-8.9) K/mcL BMP 07/20/18 03:35 Sodium 133 L Potassium 3.3 L Chloride 99 Carbon Dioxide 26 BUN 11 Creatinine 0.67 L Glucose 133 H Calcium 8.9 - Impressions ITS Impressions Forearm CT 07/20/18 03:24 IMPRESSION: Skin thickening and diffuse soft tissue edema. No fluid collection or soft tissue gas. D/ / Rosaura Balderas MD / Rosaura Balderas MD Interpreting Provider: Rosaura Balderas MD - VTE Reasons for not Prescribing Prophylaxis: Treatment not Indicated - Low risk for VTE
[2018-07-20] MEDS: *HR* OxyCODONE Immed Rel 5 MG TABLET PO PRN ×2 (15:37→22:21)
[2018-07-20] MEDS: 0.45 % Sodium Chloride w/KCl 20 MEQ/1,000 ML MLS IVC SCH (16:58)
[2018-07-20] MEDS: Lactobacillus 1 EACH CAP.SPRINK PO SCH (20:29)
[2018-07-21] MEDS: 0.45 % Sodium Chloride w/KCl 20 MEQ/1,000 ML MLS IVC SCH ×2 (04:08→21:05)
[2018-07-21] MEDS: *HR* OxyCODONE Immed Rel 5 MG TABLET PO PRN ×3 (04:12→20:17)
[2018-07-21] MEDS: *HR* Enoxaparin 40 MG/0.4 ML SYRINGE SQ SCH (05:13)
[2018-07-21 05:36] LABS: Basophils # 0.1 K/mcL (0.0-0.2); Basophils % 0.4 %; Eosinophils # 0.8 K/mcL (0.0-0.6); Eosinophils % 5.1 %; Hematocrit 33.1 % (37.5-50.1); Hemoglobin 11.3 g/dL (12.9-16.9); Immature Granulocytes % 0.6 % (0-4); Lymphocytes # 2.1 K/mcL (0.6-4.6); Lymphocytes % 12.9 %; Mean Corpuscular HGB Conc 34.1 g/dL (31.6-35.5); Mean Corpuscular Hemoglobin 30.2 pg (28.0-33.3); Mean Corpuscular Volume 88.5 fL (83.0-100.0); Mean Platelet Volume 10.3 fL (9.4-12.4); Monocytes # 1.4 K/mcL (0.0-1.3); Monocytes % 8.6 %; Neutrophils # 11.8 K/mcL (1.6-8.9); Platelet Count 280 K/mcL (140-400); Red Blood Count 3.74 M/mcL (4.19-5.50); Segmented Neutrophils % 72.4 %; White Blood Count 16.3 K/mcL (4.3-11.1)
[2018-07-21 06:02] LABS: BUN/Creatinine Ratio 17 (6-26); Blood Urea Nitrogen 11 mg/dL (6-20); Calcium 8.1 mg/dL (8.6-10.3); Carbon Dioxide 27 mEq/L (23-29); Chloride 102 mEq/L (98-107); Glucose 126 mg/dL (70-105); Osmolality,Calculated 281 (280-300); Potassium 3.3 mEq/L (3.5-5.1); Sodium 135 mEq/L (136-145); eGFR For African Americans > 60 (> 60); eGFR For Non-African Americans > 60 (> 60)
[2018-07-21 08:09] LABS: Acinetobacter baumannii by PCR Not Detected (Not Detect); Enterobacter cloacae Cmplx PCR Not Detected (Not Detect); Enterobacteriaceae by PCR Not Detected (Not Detect); Enterococcus by PCR Not Detected (Not Detect); Escherichia coli by PCR Not Detected (Not Detect); Klebsiella oxytoca by PCR Not Detected (Not Detect); Klebsiella pneumoniae by PCR Not Detected (Not Detect); Proteus by PCR Not Detected (Not Detect); Serratia marcescens by PCR Not Detected (Not Detect); Staphylococcus aureus by PCR DETECTED (Not Detect); Staphylococcus by PCR DETECTED (Not Detect); Streptococcus agalactiae(B)PCR Not Detected (Not Detect); Streptococcus by PCR Not Detected (Not Detect); Streptococcus pneumoniae PCR Not Detected (Not Detect); Streptococcus pyogenes (A) PCR Not Detected (Not Detect); mecA Methicillin-Resist Gene DETECTED (Not Detect)
[2018-07-21 08:10] LABS: Candida albicans by PCR Not Detected (Not Detect); Candida glabrata by PCR Not Detected (Not Detect); Candida krusei by PCR Not Detected (Not Detect); Candida parapsilosis by PCR Not Detected (Not Detect); Candida tropicalis by PCR Not Detected (Not Detect); Pseudomonas aeruginosa by PCR Not Detected (Not Detect)
[2018-07-21] MEDS: traMADol 50 MG TABLET PO PRN ×2 (08:28→16:27)
[2018-07-21] MEDS: Lactobacillus 1 EACH CAP.SPRINK PO SCH ×2 (08:28→20:17)
[2018-07-21 09:10] LABS: Folate 11.7 ng/mL (3.0-16.0)
[2018-07-21 09:16] LABS: Ferritin 218 ng/mL (20-250); Iron < 10 mcg/dL (65-175); Transferrin 170 mg/dL (203-362)
--- NOTE | 2018-07-21 09:52 | Internal Med Progress Note ---
Date of Encounter: 07/21/18 Time of Encounter: 09:45 - Assessment and plan (1) Cellulitis Current Visit: Yes Status: Acute Assessment and plan: July 21. Blood cultures have shown MRSA. Continue IV vancomycin with lactobacillus. Qualifiers: Site of cellulitis: extremity Site of cellulitis of extremity: upper extremity Laterality: right Qualified Code(s): L03.113 - Cellulitis of right upper limb (2) Hypokalemia Current Visit: Yes Status: Acute Assessment and plan: July 21. Potassium level unchanged at 3.3. Continue IV fluids with supplemental potassium and add oral potassium. (3) Anemia Current Visit: Yes Status: Acute Assessment and plan: July 21. Anemia testing showed iron < 10, transferrin 170, ferritin 218, B12 418, and folate 11.7. Start oral ferrous sulfate with ascorbic acid in a.m. Qualifiers: Anemia type: unspecified type Qualified Code(s): D64.9 - Anemia, unspecified - Subjective Interval history: July 21. He has no new complaints. He states his right arm feels slightly less painful. - Constitutional Vitals: Temp Pulse Resp BP Pulse Ox 99.0 F 87 16 114/66 98 07/21/18 06:49 07/21/18 06:49 07/21/18 06:49 07/21/18 06:49 07/21/18 06:49 Exam: He is resting comfortably in bed. The intensity of erythema of the right arm is slightly lessened. There is no significant purulent drainage expressed from the open area on the proximal forearm. I reviewed his medications and lab results. Internal Medicine: Result - Labs CBC & Chem 7: 07/21/18 05:00 07/21/18 05:00 Labs: Short CBC 07/21/18 Range/Units 05:00 WBC 16.3 H (4.3-11.1) K/mcL Hgb 11.3 L (12.9-16.9) g/dL Hct 33.1 L (37.5-50.1) % Plt Count 280 (140-400) K/mcL Neutrophils # 11.8 H (1.6-8.9) K/mcL BMP 07/21/18 05:00 Sodium 135 L Potassium 3.3 L Chloride 102 Carbon Dioxide 27 BUN 11 Creatinine 0.63 L Glucose 126 H Calcium 8.1 L - VTE Reasons for not Prescribing Prophylaxis: Treatment not Indicated - Low risk for VTE Consult Discharge Plan - Plan Referrals: NONE,PCP [Primary Care Provider] - 1 week
[2018-07-22] MEDS: *HR* OxyCODONE Immed Rel 5 MG TABLET PO PRN ×3 (04:12→18:58)
[2018-07-22] MEDS: *HR* Enoxaparin 40 MG/0.4 ML SYRINGE SQ SCH (05:40)
[2018-07-22 06:18] LABS: Basophils # 0.1 K/mcL (0.0-0.2); Basophils % 0.5 %; Eosinophils # 0.9 K/mcL (0.0-0.6); Eosinophils % 8.2 %; Hematocrit 32.4 % (37.5-50.1); Hemoglobin 10.8 g/dL (12.9-16.9); Immature Granulocytes % 0.3 % (0-4); Lymphocytes # 2.3 K/mcL (0.6-4.6); Lymphocytes % 21.6 %; Mean Corpuscular HGB Conc 33.3 g/dL (31.6-35.5); Mean Corpuscular Hemoglobin 29.9 pg (28.0-33.3); Mean Corpuscular Volume 89.8 fL (83.0-100.0); Mean Platelet Volume 10.4 fL (9.4-12.4); Monocytes % 9.2 %; Neutrophils # 6.3 K/mcL (1.6-8.9); Platelet Count 277 K/mcL (140-400); Red Blood Count 3.61 M/mcL (4.19-5.50); Red Cell Distribution Width 13.2 % (11.5-14.5); Segmented Neutrophils % 60.2 %; White Blood Count 10.4 K/mcL (4.3-11.1)
[2018-07-22] MEDS ORDERED: Ascorbic Acid 500 MG TABLET PO SCH (06:30)
[2018-07-22 06:38] LABS: BUN/Creatinine Ratio 13 (6-26); Blood Urea Nitrogen 8 mg/dL (6-20); Calcium 8.2 mg/dL (8.6-10.3); Carbon Dioxide 28 mEq/L (23-29); Chloride 104 mEq/L (98-107); Glucose 95 mg/dL (70-105); Osmolality,Calculated 284 (280-300); Potassium 3.8 mEq/L (3.5-5.1); Sodium 138 mEq/L (136-145); eGFR For African Americans > 60 (> 60); eGFR For Non-African Americans > 60 (> 60)
[2018-07-22] MEDS: traMADol 50 MG TABLET PO PRN (09:28)
[2018-07-22] MEDS: Lactobacillus 1 EACH CAP.SPRINK PO SCH ×2 (09:28→20:16)
--- NOTE | 2018-07-22 09:52 | Internal Med Progress Note ---
Date of Encounter: 07/22/18 Time of Encounter: 09:45 - Assessment and plan (1) Cellulitis Current Visit: Yes Status: Acute Assessment and plan: July 21. Blood cultures have shown MRSA. Continue IV vancomycin with lactobacillus. Qualifiers: Site of cellulitis: extremity Site of cellulitis of extremity: upper extremity Laterality: right Qualified Code(s): L03.113 - Cellulitis of right upper limb (2) Hypokalemia Current Visit: Yes Status: Acute Assessment and plan: July 21. Potassium level unchanged at 3.3. Continue IV fluids with supplemental potassium and add oral potassium. July 22. Potassium normalized to 3.8. Continue potassium supplementation. (3) Anemia Current Visit: Yes Status: Acute Assessment and plan: July 21. Anemia testing showed iron < 10, transferrin 170, ferritin 218, B12 418, and folate 11.7. Start oral ferrous sulfate with ascorbic acid in a.m. Qualifiers: Anemia type: unspecified type Qualified Code(s): D64.9 - Anemia, unspecified - Subjective Interval history: July 21. He has no new complaints. He states his right arm feels slightly less painful. July 22. He has no new complaints. - Constitutional Vitals: Temp Pulse Resp BP Pulse Ox 98.2 F 83 20 114/64 99 07/22/18 07:30 07/22/18 07:30 07/22/18 07:30 07/22/18 07:30 07/22/18 07:30 Exam: He is resting comfortably in bed. The right arm shows minimal change. There is no purulent drainage expressed from compressing the area around the open ulcerative area on the flexor forearm. There is no significant change in lymphangitic streaking. I reviewed his medications and lab results. Internal Medicine: Result - Labs CBC & Chem 7: 07/22/18 05:59 07/22/18 05:59 Labs: Short CBC 07/22/18 Range/Units 05:59 WBC 10.4 (4.3-11.1) K/mcL Hgb 10.8 L (12.9-16.9) g/dL Hct 32.4 L (37.5-50.1) % Plt Count 277 (140-400) K/mcL Neutrophils # 6.3 (1.6-8.9) K/mcL BMP 07/22/18 05:59 Sodium 138 Potassium 3.8 Chloride 104 Carbon Dioxide 28 BUN 8 Creatinine 0.60 L Glucose 95 Calcium 8.2 L - VTE Reasons for not Prescribing Prophylaxis: Treatment not Indicated - Low risk for VTE Consult Discharge Plan - Plan Referrals: NONE,PCP [Primary Care Provider] - 1 week
[2018-07-22] MEDS: 0.45 % Sodium Chloride w/KCl 20 MEQ/1,000 ML MLS IVC SCH (14:15)
[2018-07-22] MEDS ORDERED: Aminoglycoside Consult 1 EACH MC ONE (17:00)
[2018-07-22 22:51] VITALS: BP 114/74
[2018-07-23] MEDS: *HR* OxyCODONE Immed Rel 5 MG TABLET PO PRN (00:50)
--- NOTE | 2018-07-23 14:36 | Discharge Summary ---
Orders not resulted at time of discharge: Pending orders 07/20/18 03:35 Culture,Blood [BC] Stat Date of Encounter: 07/23/18 Time of Encounter: 14:32 - Discharge Diagnosis (1) Cellulitis Priority: Primary Status: Acute Qualifiers: Site of cellulitis: extremity Site of cellulitis of extremity: upper extremity Laterality: right Qualified Code(s): L03.113 - Cellulitis of right upper limb (2) Hypokalemia Priority: Secondary Status: Acute (3) Anemia Priority: Secondary Status: Acute Qualifiers: Anemia type: iron deficiency Iron deficiency anemia type: unspecified iron deficiency Qualified Code(s): D50.9 - Iron deficiency anemia, unspecified Hospital course: Mr. Traylor is a 32 year old male who came to emergency room stating he had right arm infection onset 07/17/2018. He reports he first noticed a "little spot" on his arm that was pruritic. He admits he likely scratched it. Over the next 2 days the spot develop expanding erythema and pain. He felt fevers and chills the evening of July 19 so came to emergency room. He was evaluated and was found to have significant cellulitis and was admitted to [facility] for ongoing care needs. Initial orders were written by the emergency room physician. I saw him on July 20 and performed a history and physical. He was started empirically on IV vancomycin. Lactobacillus was added. Blood cultures returned showing MRSA. WBC normalized to 10.4 on July 22 with resolution of left shift. He had gradual slight clinical improvement in the erythema and edema of the right arm during his hospital stay. Anemia testing showed iron < 10, transferrin 170, ferritin 218, B12 418, and folate 11.7. He was started on ferrous sulfate with ascorbic acid. At 0130 on July 23 he announced he was leaving the hospital. He signed AMA papers and left. - Time Spent with Patient Total time spent providing and/or coordinating discharge services: - Discharge Medications Allergies/Adverse Reactions: Allergy/AdvReac Type Severity Reaction Status Date / Time No Known Allergies Allergy Verified 11/21/16 09:00 Date of admission: 07/20/18 15:13 Primary care physician: PCP NONE - Constitutional Vitals: Temp Pulse Resp BP Pulse Ox 98.2 F 97 15 114/74 100 07/22/18 22:49 07/22/18 22:49 07/22/18 22:49 07/22/18 22:49 07/22/18 22:49 - Patient Status Disposition: Left Against Medical Advice Condition: Fair - Discharge Instructions Follow Up With: NONE,PCP [Primary Care Provider] - 1 week - VTE Reasons for not Prescribing Prophylaxis: Treatment not Indicated - Low risk for VTE
== END 2018-07-23 01:30 | disposition left against medical advice (07) | DRG 603 ==
LOC: EMEROOPIK 02:57 → INPPIK 02:57
PROVIDERS: ADMIT Internal Medicine; ATTEND Internal Medicine